=== PATIENT | female | born 1975 | race Caucasian/White ===

== ENCOUNTER 2019-03-27 13:39 | Inpatient (IN) | payer OTHER ==
[2019-03-27 14:45] LABS: ADD MAN DIFF? NO
[2019-03-27] MEDS: LEVETIRACETAM 1000 MG (PMX) 100 ML IVPB (14:45)
[2019-03-27 14:50] LABS: BASOPHIL # 0.1 10^3/ul (0.0-0.1); BASOPHILS % 0.9 % (0.0-2.0); EOSINOPHILS # 0.1 10^3/ul (0.0-0.5); EOSINOPHILS % 1.5 % (0.0-7.0); LYMPHOCYTES # 2.6 10^3/ul (0.8-2.9); LYMPHOCYTES % 34.2 % (15.0-51.0); MEAN CORPUSCULAR HGB CONC 33.3 g/dl (32.0-37.0); MEAN CORPUSCULAR VOLUME 89.9 fl (82.0-101.0); MEAN PLATELET VOLUME 10.6 fl (7.4-10.4); MONOCYTE # 0.8 10^3/ul (0.3-0.9); MONOCYTES % 10.3 % (0.0-11.0); NEUTROPHILS % 52.8 % (39.0-77.0); PLATELET COUNT 310 10^3/UL (140-415); RED BLOOD COUNT 4.67 10^6/ul (4.20-5.40); RED CELL DISTRIBUTION WIDTH 13.2 % (11.5-14.5)
[2019-03-27 14:50] LABS: WHITE BLOOD COUNT 7.6 10^3/ul (4.8-10.8)
[2019-03-27 15:05] LABS: ANION GAP 6 (5-13); BLOOD UREA NITROGEN 4 mg/dl (7-20); CALCIUM 9.8 mg/dl (8.4-10.2); CARBON DIOXIDE 27 mmol/L (21-31); CHLORIDE 109 mmol/L (97-110); CREATININE 0.62 mg/dl (0.44-1.00); Estimated GFR > 60 mL/min (>60); GLUCOSE 105 mg/dl (70-220); POTASSIUM 3.7 mmol/L (3.5-5.1); SODIUM 142 mmol/L (135-144)
[2019-03-27] MEDS ORDERED: LORAZEPAM 2 MG INJ (16:41)
[2019-03-27] MEDS: LORAZEPAM 2 MG INJ IV (16:52)
[2019-03-27] MEDS ORDERED: ACETAMINOPHEN 325 MG TAB PO (22:00)
[2019-03-27] MEDS ORDERED: BISACODYL (EC) 5 MG TAB PO (22:00)
[2019-03-27] MEDS ORDERED: DOCUSATE SODIUM 100 MG CAP PO (22:00)
[2019-03-27] MEDS ORDERED: NACL 0.9% 3 ML SYG IV (22:00)
[2019-03-28] MEDS: NITROFURANTOIN (SR) 100 MG CAP PO
[2019-03-28] MEDS: LORAZEPAM 2 MG INJ IV ×2 (05:53→06:00)
[2019-03-28 06:05] LABS: ADD MAN DIFF? NO
[2019-03-28 06:08] LABS: WHITE BLOOD COUNT 7.5 10^3/ul (4.8-10.8)
[2019-03-28 06:08] LABS: BASOPHIL # 0.1 10^3/ul (0.0-0.1); BASOPHILS % 0.7 % (0.0-2.0); EOSINOPHILS # 0.1 10^3/ul (0.0-0.5); EOSINOPHILS % 1.9 % (0.0-7.0); HEMATOCRIT 40.8 % (37.0-47.0); HEMOGLOBIN 13.5 g/dl (12.0-16.0); LYMPHOCYTES # 2.1 10^3/ul (0.8-2.9); LYMPHOCYTES % 28.1 % (15.0-51.0); MEAN CORPUSCULAR HGB CONC 33.1 g/dl (32.0-37.0); MEAN CORPUSCULAR VOLUME 90.7 fl (82.0-101.0); MEAN PLATELET VOLUME 10.8 fl (7.4-10.4); MONOCYTE # 0.5 10^3/ul (0.3-0.9); MONOCYTES % 7.2 % (0.0-11.0); NEUTROPHIL # 4.6 10^3/ul (1.6-7.5); NEUTROPHILS % 61.8 % (39.0-77.0); PLATELET COUNT 276 10^3/UL (140-415); RED CELL DISTRIBUTION WIDTH 13.2 % (11.5-14.5)
[2019-03-28 06:38] LABS: ALANINE AMINOTRANSFERASE 17 IU/L (13-69); ALBUMIN 3.8 g/dl (3.3-4.9); ALBUMIN/GLOBULIN RATIO 1.35; ALKALINE PHOSPHATASE 89 IU/L (42-121); ANION GAP 7 (5-13); ASPARTATE AMINO TRANSFERASE 18 IU/L (15-46); BILIRUBIN,INDIRECT 0.3 mg/dl (0-1.1); BILIRUBIN,TOTAL 0.3 mg/dl (0.2-1.3); BLOOD UREA NITROGEN 7 mg/dl (7-20); CALCIUM 9.8 mg/dl (8.4-10.2); CARBON DIOXIDE 26 mmol/L (21-31); CHLORIDE 109 mmol/L (97-110); CHOL/HDL RATIO 5.8 RATIO; CHOLESTEROL 192 mg/dl (100-200); CREATININE 0.62 mg/dl (0.44-1.00); Estimated GFR > 60 mL/min (>60); GLUCOSE 91 mg/dl (70-220); HDL CHOLESTEROL 33 mg/dl (34-88); LDL CHOLESTEROL,CALCULATED 120 mg/dl; MAGNESIUM 2.3 mg/dl (1.7-2.5); POTASSIUM 3.6 mmol/L (3.5-5.1); SODIUM 142 mmol/L (135-144); TOTAL PROTEIN 6.6 g/dl (6.1-8.1); TRIGLYCERIDES 194 mg/dl (0-149)
[2019-03-28 06:52] LABS: ADD UMIC YES; UR ASCORBIC ACID 40 mg/dL (NEGATIVE); UR BACTERIA MANY /HPF (NONE SEEN); UR BILIRUBIN (Dip) NEGATIVE (NEGATIVE); UR BLOOD (Dip) NEGATIVE (NEGATIVE); UR CLARITY SLIGHTLY CLOUDY (CLEAR); UR COLOR AMBER (YELLOW); UR GLUCOSE (Dip) NEGATIVE (NEGATIVE); UR KETONES (Dip) 1+ mg/dL (NEGATIVE); UR LEUKOCYTE ESTERASE (Dip) 2+ Leu/ul (NEGATIVE); UR MUCUS MANY /HPF (NONE SEEN); UR NITRITE (Dip) NEGATIVE (NEGATIVE); UR RBC 1 /HPF (0-5); UR SPECIFIC GRAVITY (Dip) 1.024 (1.003-1.030); UR SQUAMOUS EPITHELIAL CELL FEW /HPF (FEW); UR TOTAL PROTEIN (Dip) NEGATIVE (NEGATIVE); UR UROBILINOGEN (Dip) 1+ mg/dL (NEGATIVE); UR WBC 37 /HPF (0-5)
[2019-03-28 07:17] LABS: HEMOGLOBIN A1C 4.9 % (0-5.9)
[2019-03-28] MEDS: LEVETIRACETAM 1000 MG (PMX) 100 ML IVPB (08:51)
[2019-03-28] MEDS: BENZTROPINE 1 MG TAB PO (17:00)
[2019-03-28] MEDS: HALOPERIDOL 5 MG TAB PO (17:00)
[2019-03-28] MEDS: VALPROATE INJ 1,000 MG in SOD CHLORIDE 0.9% 100 ML IVPB (17:26)
[2019-03-28 18:19] LABS: LACTIC ACID 0.7 mmol/L (0.5-2.0)
[2019-03-28 18:28] LABS: CREATINE KINASE 47 IU/L (23-200); VALPROATE < 10 ug/ml (50-100)
[2019-03-28] MEDS: HEPARIN 5,000 UNIT/1 ML VIAL SC ×2 (20:59→22:40)
[2019-03-28 22:18] LABS: AMPHETAMINE/METHAMPHETAMINE Negative (NEGATIVE); BARBITURATES Negative (NEGATIVE); BENZODIAZEPINES Negative (NEGATIVE); CANNABINOIDS Positive (NEGATIVE); COCAINE Negative (NEGATIVE); OPIATES Negative (NEGATIVE)
[2019-03-28] MEDS: VALPROATE INJ 500 MG in SOD CHLORIDE 0.9% 50 ML IVPB (22:38)
[2019-03-29 06:20] LABS: ADD MAN DIFF? NO
[2019-03-29 06:28] LABS: BASOPHILS % 0.8 % (0.0-2.0); EOSINOPHILS # 0.1 10^3/ul (0.0-0.5); HEMATOCRIT 38.5 % (37.0-47.0); HEMOGLOBIN 12.6 g/dl (12.0-16.0); LYMPHOCYTES # 2.4 10^3/ul (0.8-2.9); LYMPHOCYTES % 47.2 % (15.0-51.0); MEAN CORPUSCULAR HEMOGLOBIN 29.6 pg (29.0-33.0); MEAN CORPUSCULAR HGB CONC 32.7 g/dl (32.0-37.0); MEAN CORPUSCULAR VOLUME 90.6 fl (82.0-101.0); MEAN PLATELET VOLUME 10.7 fl (7.4-10.4); MONOCYTE # 0.4 10^3/ul (0.3-0.9); NEUTROPHIL # 2.1 10^3/ul (1.6-7.5); NEUTROPHILS % 41.8 % (39.0-77.0); PLATELET COUNT 243 10^3/UL (140-415); RED BLOOD COUNT 4.25 10^6/ul (4.20-5.40); RED CELL DISTRIBUTION WIDTH 13.3 % (11.5-14.5)
[2019-03-29 06:28] LABS: WHITE BLOOD COUNT 5.1 10^3/ul (4.8-10.8)
[2019-03-29 06:42] LABS: ANION GAP 5 (5-13); BLOOD UREA NITROGEN 10 mg/dl (7-20); CARBON DIOXIDE 27 mmol/L (21-31); CHLORIDE 110 mmol/L (97-110); Estimated GFR > 60 mL/min (>60); GLUCOSE 86 mg/dl (70-220); POTASSIUM 3.9 mmol/L (3.5-5.1); SODIUM 142 mmol/L (135-144)
[2019-03-29 06:59] LABS: VALPROATE 43 ug/ml (50-100)
[2019-03-29] MEDS: VALPROATE INJ 500 MG in SOD CHLORIDE 0.9% 50 ML IVPB ×2 (08:24→21:58)
[2019-03-29] MEDS: BENZTROPINE 1 MG TAB PO (08:30)
[2019-03-29] MEDS: HEPARIN 5,000 UNIT/1 ML VIAL SC ×2 (08:30→22:00)
[2019-03-29] MEDS: HALOPERIDOL 5 MG TAB PO (08:30)
[2019-03-29] MEDS: NITROFURANTOIN (SR) 100 MG CAP PO ×2 (08:31→21:58)
[2019-03-29 12:52] LABS: PROLACTIN 10.7 ng/mL
[2019-03-30] MEDS: VALPROATE INJ 500 MG in SOD CHLORIDE 0.9% 50 ML IVPB ×2 (08:23→20:50)
[2019-03-30] MEDS: HALOPERIDOL 5 MG TAB PO ×2 (08:24→09:00)
[2019-03-30] MEDS: BENZTROPINE 1 MG TAB PO ×2 (08:24→09:00)
[2019-03-30] MEDS: NITROFURANTOIN (SR) 100 MG CAP PO ×2 (09:00→21:00)
[2019-03-30] MEDS: HEPARIN 5,000 UNIT/1 ML VIAL SC ×2 (09:01→21:29)
[2019-03-30] MEDS: LORAZEPAM 2 MG INJ IV ×2 (12:51→23:38)
[2019-03-30] MEDS ORDERED: LORAZEPAM 2 MG INJ IV (13:00)
[2019-03-30 15:39] LABS: LACTIC ACID 0.7 mmol/L (0.5-2.0)
[2019-03-30 17:49] LABS: VALPROATE 48 ug/ml (50-100)
[2019-03-30] MEDS: CEFTRIAXONE 1 GM/50 ML (PMX) 50 ML IVPB (22:48)
[2019-03-31] MEDS: HALOPERIDOL 5 MG TAB PO (08:45)
[2019-03-31] MEDS: BENZTROPINE 1 MG TAB PO (08:45)
[2019-03-31] MEDS: VALPROATE INJ 500 MG in SOD CHLORIDE 0.9% 50 ML IVPB ×3 (08:50→22:31)
[2019-03-31] MEDS: HEPARIN 5,000 UNIT/1 ML VIAL SC ×2 (08:55→21:04)
[2019-03-31] MEDS: LORAZEPAM 2 MG INJ IV ×2 (09:08→16:53)
[2019-03-31] MEDS: ONDANSETRON 4 MG INJ IV (21:03)
[2019-03-31] MEDS: HALOPERIDOL 5 MG INJ IM (21:03)
[2019-03-31] MEDS: KETOROLAC 15 MG INJ IV (21:03)
[2019-03-31] MEDS: CEFTRIAXONE 1 GM/50 ML (PMX) 50 ML IVPB (21:21)
[2019-04-01] MEDS: HALOPERIDOL 5 MG INJ IM (08:23)
[2019-04-01] MEDS: BENZTROPINE 1 MG TAB PO (08:24)
[2019-04-01] MEDS: VALPROATE INJ 500 MG in SOD CHLORIDE 0.9% 50 ML IVPB ×2 (08:24→20:37)
[2019-04-01] MEDS: HEPARIN 5,000 UNIT/1 ML VIAL SC ×2 (08:32→20:38)
[2019-04-01] MEDS: KETOROLAC 15 MG INJ IV (11:31)
[2019-04-01] MEDS: CEFTRIAXONE 1 GM/50 ML (PMX) 50 ML IVPB (21:13)
[2019-04-02] MEDS: ONDANSETRON 4 MG INJ IV (08:41)
[2019-04-02] MEDS: KETOROLAC 15 MG INJ IV ×2 (08:44→18:42)
[2019-04-02] MEDS: VALPROATE INJ 500 MG in SOD CHLORIDE 0.9% 50 ML IVPB ×2 (08:46→21:07)
[2019-04-02] MEDS: BENZTROPINE 1 MG TAB PO (08:49)
[2019-04-02] MEDS: HEPARIN 5,000 UNIT/1 ML VIAL SC ×2 (08:52→21:08)
[2019-04-02] MEDS: HALOPERIDOL 5 MG INJ IM (08:52)
[2019-04-02] MEDS: LORAZEPAM 2 MG INJ IV (13:47)
[2019-04-03] MEDS: ONDANSETRON 4 MG INJ IV (08:51)
[2019-04-03] MEDS: HALOPERIDOL 5 MG INJ IM (08:51)
[2019-04-03] MEDS: KETOROLAC 15 MG INJ IV ×2 (08:51→15:11)
[2019-04-03] MEDS: BENZTROPINE 1 MG TAB PO (08:52)
[2019-04-03] MEDS: HEPARIN 5,000 UNIT/1 ML VIAL SC ×2 (08:52→20:18)
[2019-04-03] MEDS: VALPROATE INJ 500 MG in SOD CHLORIDE 0.9% 50 ML IVPB ×2 (10:03→20:17)
[2019-04-03] MEDS: LORAZEPAM 2 MG INJ IV ×2 (11:36→20:21)
[2019-04-04] MEDS: BENZTROPINE 1 MG TAB PO (07:30)
[2019-04-04] MEDS: HALOPERIDOL 5 MG INJ IM (09:00)
[2019-04-04] MEDS: HEPARIN 5,000 UNIT/1 ML VIAL SC ×2 (09:01→20:53)
[2019-04-04] MEDS: VALPROATE INJ 500 MG in SOD CHLORIDE 0.9% 50 ML IVPB ×2 (09:02→20:45)
[2019-04-04] MEDS: LORAZEPAM 2 MG INJ IV ×2 (12:34→20:39)
[2019-04-05] MEDS: ZOLPIDEM 5 MG TAB PO ×2 (02:33→22:26)
[2019-04-05] MEDS: BENZTROPINE 1 MG TAB PO (09:02)
[2019-04-05] MEDS: HALOPERIDOL 5 MG INJ IM (09:02)
[2019-04-05] MEDS: HEPARIN 5,000 UNIT/1 ML VIAL SC ×2 (09:03→20:31)
[2019-04-05] MEDS: VALPROATE INJ 500 MG in SOD CHLORIDE 0.9% 50 ML IVPB ×2 (09:04→20:32)
[2019-04-05] MEDS: ONDANSETRON 4 MG INJ IV (09:13)
[2019-04-05] MEDS: traMADol 50 MG TAB PO (21:31)
[2019-04-06] MEDS: LORAZEPAM 2 MG INJ IV ×2 (03:07→13:42)
[2019-04-06] MEDS: VALPROATE INJ 500 MG in SOD CHLORIDE 0.9% 50 ML IVPB (08:38)
[2019-04-06] MEDS: HALOPERIDOL 5 MG INJ IM (08:38)
[2019-04-06] MEDS: BENZTROPINE 1 MG TAB PO (08:38)
[2019-04-06] MEDS: HEPARIN 5,000 UNIT/1 ML VIAL SC (08:38)
[2019-04-06] MEDS: traMADol 50 MG TAB PO (10:30)
== END 2019-04-06 16:15 | DRG 101 ==
LOC: E/R 13:39 → 6WM 22:28 → 5EC 03-31 17:40 → 6WM 16:28
DX: R56.9 Unspecified convulsions (principal); R45.851 Suicidal ideations; N39.0 Urinary tract infection, site not specified; F32.9 Major depressive disorder, single episode, unspecified; F25.8 Other schizoaffective disorders; Z76.5 Malingerer [conscious simulation]
CPT/HCPCS: 36415; 70450; 70553; 71045; 80048; 80053; 80061; 80164; 80307; 81001; 82550; 82962; 83036; 83605; 83735; 84146; 84443; 84703; 85025; 96374; 97110; 97116; 97162; 97530; 99217; 99285-25; G0378